=== PATIENT | male | born 1975 | race Asian ===

== ENCOUNTER 2023-05-11 13:12 | Outpatient (REF) | payer BC, SELFPAY ==
[2023-05-11 13:39] LABS: IDNOW Serial# 6674DD1D
[2023-05-11 13:40] LABS: Strep A Nucleic Acid Negative (Negative)
== END 2023-05-11 13:13 | disposition home or self-care (01) ==
LOC: HO.LNP 13:12
PROVIDERS: Visit Provider Family Medicine
DX: J02.9 Acute pharyngitis, unspecified (principal); R50.9 Fever, unspecified
CPT/HCPCS: 87651

== ENCOUNTER 2023-11-14 08:48 | Outpatient (REF) | payer BC, SELFPAY ==
[2023-11-14 08:56] LABS: MANUAL DIFF FLAG NO
[2023-11-14 10:04] LABS: Basophils Percent Auto 0.4 % (0-2); Eosinophils Absolute Auto 0.1 X10*3/uL (0.0-0.4); Eosinophils Percent Auto 1.6 % (0-4); Hematocrit 45.6 % (42.0-52.0); Hemoglobin 15.3 g/dl (14.0-18.0); Lymphocytes Absolute Auto 1.8 X10*3/uL (1.2-4.9); Lymphocytes Percent Auto 41.1 % (20-40); Mean Corpuscular HGB Conc 33.6 g/dl (31.0-36.0); Mean Corpuscular Volume 86.4 fL (80.0-98.0); Mean Platelet Volume 11.8 fL (9.4-12.4); Monocytes Absolute Auto 0.3 X10*3/uL (0.1-1.2); Monocytes Percent Auto 7.6 % (2-11); Neutrophils Absolute Auto 2.2 x10*3/uL (2.0-8.3); Neutrophils Percent Auto 49.3 % (45-73); Platelet Count 216 X10*3/uL (160-400); Red Blood Count 5.28 X10*6/uL (4.60-5.80); Red Cell Distribution Width 12.7 % (11.0-16.0); White Blood Count 4.5 X10*3/uL (4.8-10.8)
[2023-11-14 10:27] LABS: Estimated Average Glucose 105 mg/dL; Hemoglobin A1c % 5.3 % (<6.0)
[2023-11-14 11:15] LABS: Alanine Aminotransferase 17 U/L (0-40); Albumin Level 4.3 g/dL (3.5-5.0); Alkaline Phosphatase 65 U/L (39-117); Anion Gap 8 (12-20); Aspartate Amino Transferase 16 U/L (5-37); Bilirubin Total 0.5 mg/dL (0.0-1.0); Blood Urea Nitrogen 11 mg/dL (9-16); Calcium 9.4 mg/dL (8.4-10.2); Carbon Dioxide 30 mmol/L (22-29); Chloride 108 mmol/L (96-108); Cholesterol 185 mg/dL (<200); Estimated Glomerular Filt Rate > 60; Glucose Fasting 89 mg/dL (60-99); HDL Cholesterol 57 mg/dL (>40); LDL Cholesterol Calculated 114 mg/dL (<100); Potassium 4.1 mmol/L (3.3-5.1); Sodium 142 mmol/L (135-145); Triglycerides 72 mg/dL (<150)
== END 2023-11-14 08:49 | disposition home or self-care (01) ==
LOC: HO.LAB 08:48
PROVIDERS: PCP Family Medicine; Visit Provider Family Medicine
DX: I10 Essential (primary) hypertension (principal); Z82.49 Family history of ischemic heart disease and other diseases of the circulatory system; R00.0 Tachycardia, unspecified
CPT/HCPCS: 36415; 80053; 80061; 83036; 85025

== ENCOUNTER 2025-05-31 07:59 | Outpatient (AMB) | payer BC, SELFPAY ==
--- OUTSIDE RECORDS SUMMARY | 2025-05-31 08:04 | XMS_ITS | Clinical Summary ---
Author Organization [facility] Address [address] [place] [address] Care Team Providers Care Patient Resource Specialist Name Role Phone Unavailable Primary Care Provider Unavailabl e Social History Tobacco Use Types Packs/Day Years Used Date Smoking Tobacco: Never Assessed Sex and Gender Information Value Date Recorded Sex Assigned at Not on file Legal Sex Male 2:06 PM EDT Gender Identity Not on file Sexual Orientation Not on file Plan of Treatment Health Maintenance Due Date Last Done Comments Hepatitis C Virus Screening 1975 HIV Screening 1988 DTaP/Tdap/Td Vaccines (1 - Tdap) 1994 Hepatitis B Vaccines (1 of 3 - 19+ 3-dose series) 03/27 COVID-19 Vaccine (1 - season) 2025 Pneumococcal Vaccines 50+ (1 of 1 - PCV) 2025 Zoster (Shingles) Vaccine (1 of 2) 2025 RSV Vaccine 50 years and old er and Patients (1 - 1-dose 75+ series) 2050
--- OUTSIDE RECORDS SUMMARY | 2025-05-31 08:04 | XMS_ITS ---
Author Name [facility] Organization Unknown History of Medication Use Medication Directions Dispensed Refills Start Date End Date Stat us Efudex 5% Topical Cream 12/18/2023 01/16/2024 active Efudex 5% Topical Cream 12/18/2023 01/16/2024 active Augmentin 875mg Tablet 12/15/2023 12/21/2023 active TRAMADOL 11/05/2023 active None recorded. 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 ProblemAct ENS_P ODCRCT Chronic back pain active 2021-07-23 ProblemAct [facility] Encounters Encounter Type Encounter Reason Primary Diagnosis Location Date [facility] 11/15/2021 [facility] 07/23/2021 [facility] 05/31/2021 Care Team Organization Name Specialty Phone Email Start Date End [facility] 06/10/2024 PodiatryCGuadalupe oconnell MD Primary Care 11/21/2023 PodGuadalupe Sheldon MD Primary Care 11/20/2023 [facility] 11/15/2021 03/14/2024 [facility] 05/31/2021 11/15/2021
[2025-05-31 08:07] VITALS: BP 120/74; PULSE 105; TEMP 36.3; BMI 23.1
--- NOTE | 2025-05-31 08:07 | A.OFFPC_ITS ---
Vital Signs 05/31/25 08:07 Height 5 ft 9.88 in Weight 160 lb 4 oz BMI 23.1 BP 120/74 Blood Pressure Location Lt brachial Position Sitting Pulse 105 H Pulse Source Pulse Oximeter Temp 97.3 F Temp Source Temporal Artery Scan Intake Visit Reasons: Establish care- Dr. Jessica pt - see comments Intake Note: Patient is a new patient here to establish care for Back pain. Transferring care from Dr Cortez. Medical records have been requested and have received. Allergies No Known Allergies Allergy (Verified 05/31/25 08:07) Tobacco use date assessed: 05/31/25 Dental Screening Dental Screen Date: 05/31/25 Did you have a dental visit in the last 12 months?: Yes Did you have a dental problem in the last 6 months where you did not have access to dental care?: No Was dental information given to patient?: Patient has dentist [facility] Medical History (Updated 05/31/25 @ 08:39 by Romeo Meeks MD) Neuropathic pain Hyperlipidemia Surgical History (Updated 05/31/25 @ 08:15 by ROSAS Floyd) History of back surgery Social History (Updated 05/31/25 @ 08:16 by ROSAS Floyd) Housing: House Alcohol intake: current Alcohol intake frequency: holidays/special occasions only Patient Tobacco Use Status: Never used Tobacco e-Cigarette/Vaping Use: Never Used Second Hand Smoke Exposure: No service: No Current occupational status: employed Current occupation: Doctor Cognitive needs: No Hearing needs: No Vision needs: Yes (Glasses) Questionnaire PHQ-9 Over the last 2 weeks, how often have you been bothered by any of the following problems? 1. Little interest or pleasure in doing things: not at all 2. Feeling down, depressed, or hopeless: not at all 3. Trouble falling or staying asleep, or sleeping too much: not at all 4. Feeling tired or having little energy: not at all 5. Poor appetite or overeating: not at all 6. Feeling bad about yourself - or that you are a failure or have let yourself or your family down: not at all 7. Trouble concentrating on things, such as reading the newspaper or watching television: not at all 8. Moving or speaking so slowly that other people could have noticed. Or the opposite - being so fidgety or restless that you have been moving around a lot more than usual: not at all 9. Thoughts that you would be better off or of hurting yourself in some way: not at all Total score: 0 Depression Screening Interpretation: Negative Depression Screening Done: Yes Source: Developed by Drs. Luis M Wilks, Taylor Lopez, Tico Pollack and colleagues, with an educational ariela from [employer]. Thrive Questionnaire Date Thrive assessed: 05/31/25 I am a: Patient What is your living situation today?: I have a steady place to live Within the past 12 months, did the food you bought not last and you didn't have the money to get more?: I choose not to answer this question Within the past 12 months, did you worry whether your food would run out before you got money to buy more?: I choose not to answer this question Do you have trouble paying for medicines?: I choose not to answer this question Do you have trouble getting transportation to medical appointments?: I choose not to answer this question Do you have trouble paying your heating and electricity bill?: I choose not to answer this question Do you have trouble taking care of your child, family member or friend?: I choose not to answer this question Do you have trouble with day-to-day activities such as bathing, preparing meals, shopping, managing finances, etc.?: I choose not to answer this question Are you currently unemployed and looking for a job?: I choose not to answer this question Are you interested in more education?: I choose not to answer this question Please select the resources that you would like help with: None Currently or been in a relationship where the following occur: I choose not to answer THRIVE Score: 0 AUDIT C Alcohol Use Questionnaire (AUDIT-C) 1. How often do you have a drink containing alcohol?: Never 2. How many drinks containing alcohol do you have on a typical day when you are drinking?: 1 or 2 3. How often do you have six or more drinks on one occasion?: Never Total Score: 0 RACH-7 AMB Questionnaire RACH-7 Date RACH - 7 assessed: 05/31/25 Feeling nervous, anxious, or on edge: 0 = Not at all Not being able to stop or control worryin = Not at all Worrying too much about different things: 0 = Not at all Trouble relaxin = Not at all Being so restless that it is hard to sit still: 0 = Not at all Becoming easily annoyed or irritable: 0 = Not at all Feeling afraid as if something awful might happen: 0 = Not at all Total RACH-7 score (0-4 normal; 5-9 mild; 10-14 moderate; 15-21 severe): 0 Source: Developed by Drs. Luis M Wilks, Taylor Lopez, Tico Pollack and colleagues, with an educational ariela from [employer]. Physical exam (Primary Care) Vital Signs: Last Vital Signs Temp 97.3 F 05/31/25 08:07 Pulse 105 H 05/31/25 08:07 BP 120/74 05/31/25 08:07 BMI result Body Mass Index 23.1 Tobacco/Smoking Status: Tobacco use Status Tobacco use date assessed 05/31/25 05/31/25 08:17 Patient Tobacco Use Status Never used Tobacco 05/31/25 08:17 e-Cigarette/Vaping Use Never Used 05/31/25 08:17 PHQ-9: PHQ-9 Score PHQ-9: Total score 0 05/31/25 08:17 Depression Screening Interpretation: Negative Thrive Assessment: Date of Thrive Assessment Date Thrive assessed 05/31/25 05/31/25 08:09 Currently or been in a relationship where the following occur: I choose not to answer Coding Level of Care Code New Pt Prev Care 40-64y([id number]) Diagnoses Hyperlipidemia E78.5 Neuropathic pain M79.2 Assessment & Plan Assessment & Plan (1) Hyperlipidemia: Code(s): E78.5 - Hyperlipidemia, unspecified Category: Medical Plan: LDL is slightly elevated, bw has been repeated. Currently on no medications (2) Neuropathic pain: Code(s): M79.2 - Neuralgia and neuritis, unspecified Category: Medical Plan: Patient is compliant with medications. Is decreasing the dosing on tramadol on his own Plan History of Present Illness - The patient is a 50-year-old male presenting for an annual wellness visit and management of chronic conditions. - He reports chronic but stable health issues. - The patient takes tramadol for neuropathic pain in his legs and has recently self-tapered his dose from twice daily to once daily, which he is tolerating well. - He reports that past diagnostic studies including MRIs and EMGs have been performed, but the records are not in the current electronic system. - For colon cancer screening, the patient completed a Cologuard test on July 05, 2022, which was negative. - He is not keen on undergoing a colonoscopy at this time. - He has no family history of colon cancer. - The patient has already received his flu vaccine for the season. - He denies any history of diabetes. Social History - - Exercise: He is physically active, riding his bicycle 15-20 miles daily until May, after which he uses a [employer] indoors and walks his dog. - Family: He has a 15-year-old child. - Functional Status: The patient reports he is able to perform all activities of daily living. Review of Systems - General: Reports feeling fine. - Neurological: Reports neuropathic pain in the legs. - Psychiatric: Denies anxiety. - Gastrointestinal: Reports regular bowel movements. - Sleep: Reports sleeping well. Physical Exam General: Cooperative and healthy appearing Nutritional Appearance: Well nourished Orientation/consciousness: Patient oriented x3 Limitations: No limitations Head: Normal to inspection General: Appearance normal, both eyes and all related structures Neck: Normal visual inspection Chest: Normal palpation of entire chest wall Respiratory: N ormal respiratory effort Neurology: Patient oriented x3, no neuropathic pain in the legs, heart rate is 50, no anxiety, no pain, bowel movements are regular. Results - Screening Tests: Cologuard test performed on July 05, 2022 was negative. Plan - Will order fasting blood work, including a complete metabolic panel, lipid panel, liver enzymes, and thyroid function tests. - Will order a urinalysis. - A new Cologuard kit will be ordered and sent to the patient's home, as he is due for screening in June 2025. - The patient has declined a screening colonoscopy at this time. - The patient will continue taking tramadol once daily for neuropathic leg pain, as needed. - The patient was instructed to use [facility] for medication refill requests. - Will call the patient to discuss lab results. - Plan to follow up in one year for an annual visit, or sooner if issues arise. Discussion Notes I discussed the plan for routine health maintenance with the patient. I have ordered fasting blood work and will order a new Cologuard kit, as his last test was in 2021 and screening is recommended every three years. The patient declined a screening colonoscopy at this time. I informed the patient that I will call him with the results of his blood work. We agreed that follow-up will be on an annual basis unless an issue arises sooner. I advised him that the best way to request medication refills is via [facility]. Patient Instructions - Please go to the lab for the fasting blood work that was ordered. - A Cologuard kit will be sent to your home for colon cancer screening. - You may continue to take Tramadol once a day as needed for your leg pain. - Ipp. - I will call you with your lab results. - Please schedule a follow-up appointment in one year, or contact us sooner if any problems arise. Orders: Orders Complete Blood Count no Diff Today E78.5 - Hyperlipidemia, unspecified Basic Metabolic Panel Today E78.5 - Hyperlipidemia, unspecified UA and rflx microscopic Today E78.5 - Hyperlipidemia, unspecified Liver Panel Today E78.5 - Hyperlipidemia, unspecified Lipid Panel Today E78.5 - Hyperlipidemia, unspecified Thyroid Stimulating Hormone Today E78.5 - Hyperlipidemia, unspecified Referrals Cologuard Test Z12.11 - Encounter for screening for malignant neoplasm of colon
== END 2025-05-31 08:33 | disposition home or self-care (01) ==
LOC: HO.HMCH 07:59
PROVIDERS: PCP Family Medicine; Visit Provider Internal Medicine
DX: Z00.00 Encounter for general adult medical examination without abnormal findings (principal); E78.5 Hyperlipidemia, unspecified; M79.2 Neuralgia and neuritis, unspecified